=== PATIENT | male | born 1995 | race Caucasian/White ===

== ENCOUNTER → 2016-08-16 | Outpatient (REF) | payer OTHER ==
[2016-08-16 15:00] LABS: % NORMAL FORMS 13 % (>=4); IMMOTILITY 47 %; NON PROGRESSIVE MOTILITY (c) 7 %; PROGRESSIVE MOTILITY (a) 46 % (>=32); SPERM# 147.4 M/Ejac (33-46); TOTAL MOTILITY 53 % (>=40); TOTAL PROGRESSIVE SPERM 67.4 M/Ejac.
== END | disposition home or self-care (01) ==
LOC: M LAB REF 08:57
PROVIDERS: ATTEND Physician Assistant
DX: Z31.41 Encounter for fertility testing (principal)

== ENCOUNTER 2016-08-19 12:24 | Emergency (ER) | payer OTHER ==
[2016-08-19] MEDS ORDERED: DERMABOND TOPICAL SKIN ADHESIVE As Ordered ONE (13:04)
--- NOTE | 2016-08-19 13:24 | EDDOCDS ---
Nurse's Notes [facility] Name: Rafita Perez Age: 21 yrs Sex: Male : 1995 Arrival Date: 08/19/2016 Time: 12:24 Bed TR7 [facility] Diagnosis: Laceration without foreign body of right little finger without damage to nail Presentation: 08/19 12:31 Presenting complaint: Patient states: Laceration to right little finger at 1700 lest mlb1 evening. Adult Sepsis Screening: The patient does not have new or worsening altered mentation. Patient's respiratory rate is less than 22. Systolic blood pressure is greater than 100. Patient has a qSOFA score of 0- Negative Sepsis Screen. Suicide/Homicide risk assessment- the patient denies having any suicidal and/or homicidal ideations and does not present with any other emotional, behavioral or mental health complaints. 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 Transition of care: patient was not received from another setting of care. 12:31 Acuity: NATTY Level 5 mlb1 12:31 Method Of Arrival: Walkin/Carried/Asstd mlb1 Triage Assessment: 12:34 General: Appears in no apparent distress, Behavior is appropriate for age, cooperative. mlb1 Pain: Location: right little finger Pain currently is 4 out of 10 on a pain scale. HIV screening NA for this visit Offered previously. 13:22 Derm: Skin is pink, warm & dry. Injury Description: Laceration sustained to dorsal rs3 aspect of middle phalanx of right little finger is clean. Historical: - Allergies: no known allergies; - Home Meds: 1. tramadol 50 mg Oral tab 1 tab every 6 hours as needed 2. Celebrex 100 mg Oral cap once daily - PMHx: Chronic Back pain; - PSHx: pionidal cyst; - Immunization history:: Last tetanus immunization: up to date. - Family history: Not pertinent. - Social history: Smoking status: Patient states was never smoker of tobacco. No barriers to communication noted, The patient speaks fluent Ivorian, Speaks appropriately for age. - : The pt / caregiver states he / she is not on anticoagulants. Home medication list is obtained from the patient. - Exposure Risk Screening:: None identified. Screenin:21 Screening information is obtained from the patient. Fall risk: No risks identified. rs3 Assistance ADL's: requires no assistance with activities of daily living. Abuse/DV Screen: The patient / caregiver reports he/she is: not in a situation that causes fear, pain or injury. Nutritional screening: No deficits noted. Advance Directives: Currently, there is no health care proxy. There is no active DNR order. home support is adequate. Assessment: 13:21 General: Appears in no apparent distress, Behavior is appropriate for age, cooperative. rs3 Pain: Denies pain. Neurological: Level of Consciousness is awake, alert, Oriented to person, place, time. Cardiovascular: Capillary refill < 3 seconds. Respiratory: Airway is patent Respiratory effort is even, unlabored. Derm: Skin is pink, warm & dry. laceration to R little finger. Vital Signs: 12:26 BP 163 / 90; Pulse 73; Resp 16; Temp 98.1(O); Pulse Ox 100% ; Weight 79.38 kg; Height 5 elp ft. 8 in. (172.72 cm); 12:26 Body Mass Index 26.61 (79.38 kg, 172.72 cm) [facility] Vitals: 12:26 Log In Time: August 19, 2016 at 12:24. elp ED Course: 12:25 Patient visited by Nicole Correia PCA. elp 12:25 Patient moved to Waiting elp 12:26 [facility] is Private Physician. elp 12:27 Patient visited by Nicole Correia PCA. elp 12:27 Patient moved to Pre RCE elp 12:32 Triage Initiated mlb1 12:34 Patient visited by Lino Lagos RN. mlb1 12:41 Patient moved to Triage 1 ck1 12:50 [facility]ul Hamilton [facility] ar2 12:50 Silvana Malone MD is Attending Physician. ar2 12:50 Patient visited by Lul Hamilton PA-C. ar2 13:02 [facility] Payment Agreement was scanned into [employer] and attached to record. gb 13:14 [facility] is Referral Physician. ar2 13:19 Patient moved to TR7 ck1 13:22 The patient / caregiver is instructed regarding the plan of care and ED course. rs3 13:22 No IV's were initiated during this patient's visit. No procedures done that require rs3 assistance. Order Results: There are currently no results for this order. Outcome: 13:15 Discharge ordered by Provider. ar2 13:22 Discharge Assessment: patient administered narcotics - no. The following High Risk rs3 Discharge criteria are identified: None. Discharged to home with family. Condition: stable. Discharge instructions given to patient, Instructed on discharge instructions, follow up and referral plans. medication usage, Demonstrated understanding of instructions, medications, Pt was receptive of discharge instructions/ teaching. Prescriptions given X 1. No special radiology studies were completed. Property :Personal belongings accompany Pt. 13:23 Patient left the ED. rs3 Signatures: Violette Artis, Reg Reg gb Lino Lagos RN RN mlb1 Jael Bowden RN RN ck1 Lul Hamilton, PAEdilberto PAEdilberto ar2 Desiree Hollingsworth RN RN rs3 Nicole Correia, CHAIN OFFBEARER CHAIN OFFBEARER elp MTDD
--- NOTE | 2016-08-19 13:24 | EDDOCDS ---
Physician Documentation [facility] Name: Rafita Perez Age: 21 yrs Sex: Male : 1995 Arrival Date: 08/19/2016 Time: 12:24 Bed TR7 Private MD: [facility] Disposition: 08/19/16 13:15 Discharged to Home/Self Care. Impression: Laceration without foreign body of right little finger without damage to nail. - Condition is Stable. - Discharge Instructions: Tissue Adhesive Wound Care. - Prescriptions for Keflex 500 mg Oral Capsule - take 1 capsule by ORAL route every 8 hours for 7 days; 21 capsule. - Medication Reconciliation, Local Pharmacy Hours form. - Follow up: [facility]; When: 2 - 3 days; Reason: Recheck today's complaints. Follow up: Emergency Department; When: As needed; Reason: signs of infection. - Problem is new. - Symptoms have improved. - Notes: wear splint as needed for wound protection Historical: - Allergies: no known allergies; - Home Meds: 1. tramadol 50 mg Oral tab 1 tab every 6 hours as needed 2. Celebrex 100 mg Oral cap once daily - PMHx: Chronic Back pain; - PSHx: pionidal cyst; - Immunization history:: Last tetanus immunization: up to date. - Family history: Not pertinent. - Social history: Smoking status: Patient states was never smoker of tobacco. No barriers to communication noted, The patient speaks fluent Cook Islander, Speaks appropriately for age. - : The pt / caregiver states he / she is not on anticoagulants. Home medication list is obtained from the patient. - Exposure Risk Screening:: None identified. Vital Signs: 08/19 12:26 BP 163 / 90; Pulse 73; Resp 16; Temp 98.1(O); Pulse Ox 100% ; Weight 79.38 kg / 175 elp lbs; Height 5 ft. 8 in. (172.72 cm); 12:26 Body Mass Index 26.61 (79.38 kg, 172.72 cm) elp MDM: 12:53 Financial registration complete. gb 13:01 Dermabond to bedside ordered. ar2 13:02 [facility] Payment Agreement was scanned into [employer] and attached to record. gb Signatures: Violette Artis, Reg Reg Lino Singletary, RN RN mlb1 Lul Hamilton, PAGenesisC PA-C ar2 Desiree HollingsworthRN RN rs3 The chart was reviewed and I authenticate all verbal orders and agree with the evaluation and treatment provided.Attachments: 13:02 [facility] Payment Agreement gb MTDD
--- NOTE | 2016-08-21 14:24 | EDDOCDS ---
Physician Documentation [facility] Name: Rafita Perez Age: 21 yrs Sex: Male : 1995 Arrival Date: 08/19/2016 Time: 12:24 Bed TR7 Private MD: [facility] [place] Disposition: 08/19/16 13:15 Discharged to Home/Self Care. Impression: Laceration without foreign body of right little finger without damage to nail. - Condition is Stable. - Discharge Instructions: Tissue Adhesive Wound Care. - Prescriptions for Keflex 500 mg Oral Capsule - take 1 capsule by ORAL route every 8 hours for 7 days; 21 capsule. - Medication Reconciliation, Local Pharmacy Hours form. - Follow up: [facility]; When: 2 - 3 days; Reason: Recheck today's complaints. Follow up: Emergency Department; When: As needed; Reason: signs of infection. - Problem is new. - Symptoms have improved. - Notes: wear splint as needed for wound protection Historical: - Allergies: no known allergies; - Home Meds: 1. tramadol 50 mg Oral tab 1 tab every 6 hours as needed 2. Celebrex 100 mg Oral cap once daily - PMHx: Chronic Back pain; - PSHx: pionidal cyst; - Immunization history:: Last tetanus immunization: up to date. - Family history: Not pertinent. - Social history: Smoking status: Patient states was never smoker of tobacco. No barriers to communication noted, The patient speaks fluent Djiboutian, Speaks appropriately for age. - : The pt / caregiver states he / she is not on anticoagulants. Home medication list is obtained from the patient. - Exposure Risk Screening:: None identified. Vital Signs: 08/19 12:26 BP 163 / 90; Pulse 73; Resp 16; Temp 98.1(O); Pulse Ox 100% ; Weight 79.38 kg / 175 elp lbs; Height 5 ft. 8 in. (172.72 cm); 12:26 Body Mass Index 26.61 (79.38 kg, 172.72 cm) elp MDM: 12:53 Financial registration complete. gb 13:01 Dermabond to bedside ordered. ar2 13:02 [facility] Payment Agreement was scanned into [employer] and attached to record. gb 15:45 T-Sheet-- Draft Copy was scanned into [employer] and attached to record. klr Signatures: Violette Artis, Reg Reg gb Lino Lagos RN RN mlb1 Lul Hamilton PA-C PA-C ar2 Desiree HollingsworthRN RN rs3 Abby Densonr The chart was reviewed and I authenticate all verbal orders and agree with the evaluation and treatment provided.Attachments: 13:02 [facility] Payment Agreement gb 15:45 T-Sheet-- Draft Copy klr Chart Complete MTDD
--- NOTE | 2016-08-21 14:24 | EDDOCDS ---
Nurse's Notes [facility] Name: Rafita Perez Age: 21 yrs Sex: Male : 1995 Arrival Date: 08/19/2016 Time: 12:24 Bed TR7 [facility] Diagnosis: Laceration without foreign body of right little finger without damage to nail Presentation: 08/19 12:31 Presenting complaint: Patient states: Laceration to right little finger at 1700 lest mlb1 evening. Adult Sepsis Screening: The patient does not have new or worsening altered mentation. Patient's respiratory rate is less than 22. Systolic blood pressure is greater than 100. Patient has a qSOFA score of 0- Negative Sepsis Screen. Suicide/Homicide risk assessment- the patient denies having any suicidal and/or homicidal ideations and does not present with any other emotional, behavioral or mental health complaints. 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 Transition of care: patient was not received from another setting of care. 12:31 Acuity: NATTY Level 5 mlb1 12:31 Method Of Arrival: Walkin/Carried/Asstd mlb1 Triage Assessment: 12:34 General: Appears in no apparent distress, Behavior is appropriate for age, cooperative. mlb1 Pain: Location: right little finger Pain currently is 4 out of 10 on a pain scale. HIV screening NA for this visit Offered previously. 13:22 Derm: Skin is pink, warm & dry. Injury Description: Laceration sustained to dorsal rs3 aspect of middle phalanx of right little finger is clean. Historical: - Allergies: no known allergies; - Home Meds: 1. tramadol 50 mg Oral tab 1 tab every 6 hours as needed 2. Celebrex 100 mg Oral cap once daily - PMHx: Chronic Back pain; - PSHx: pionidal cyst; - Immunization history:: Last tetanus immunization: up to date. - Family history: Not pertinent. - Social history: Smoking status: Patient states was never smoker of tobacco. No barriers to communication noted, The patient speaks fluent Nauruan, Speaks appropriately for age. - : The pt / caregiver states he / she is not on anticoagulants. Home medication list is obtained from the patient. - Exposure Risk Screening:: None identified. Screenin:21 Screening information is obtained from the patient. Fall risk: No risks identified. rs3 Assistance ADL's: requires no assistance with activities of daily living. Abuse/DV Screen: The patient / caregiver reports he/she is: not in a situation that causes fear, pain or injury. Nutritional screening: No deficits noted. Advance Directives: Currently, there is no health care proxy. There is no active DNR order. home support is adequate. Assessment: 13:21 General: Appears in no apparent distress, Behavior is appropriate for age, cooperative. rs3 Pain: Denies pain. Neurological: Level of Consciousness is awake, alert, Oriented to person, place, time. Cardiovascular: Capillary refill < 3 seconds. Respiratory: Airway is patent Respiratory effort is even, unlabored. Derm: Skin is pink, warm & dry. laceration to R little finger. Vital Signs: 12:26 BP 163 / 90; Pulse 73; Resp 16; Temp 98.1(O); Pulse Ox 100% ; Weight 79.38 kg; Height 5 elp ft. 8 in. (172.72 cm); 12:26 Body Mass Index 26.61 (79.38 kg, 172.72 cm) [facility] Vitals: 12:26 Log In Time: August 19, 2016 at 12:24. elp ED Course: 12:25 Patient visited by Nicole Correia PCA. elp 12:25 Patient moved to Waiting elp 12:26 [facility] is Private Physician. elp 12:27 Patient visited by Nicole Correia PCA. elp 12:27 Patient moved to Pre RCE elp 12:32 Triage Initiated mlb1 12:34 Patient visited by Lino Lagos RN. mlb1 12:41 Patient moved to Triage 1 ck1 12:50 Lul Hamilton [facility]-C [facility]. ar2 12:50 Silvana Malone MD is Attending Physician. ar2 12:50 Patient visited by Lul Hamilton PA-C. ar2 13:02 [facility] Payment Agreement was scanned into [employer] and attached to record. gb 13:14 [facility] is Referral Physician. ar2 13:19 Patient moved to TR7 ck1 13:22 The patient / caregiver is instructed regarding the plan of care and ED course. rs3 13:22 No IV's were initiated during this patient's visit. No procedures done that require rs3 assistance. 15:45 T-Sheet-- Draft Copy was scanned into [employer] and attached to record. klr Order Results: There are currently no results for this order. Outcome: 13:15 Discharge ordered by Provider. ar2 13:22 Discharge Assessment: patient administered narcotics - no. The following High Risk rs3 Discharge criteria are identified: None. Discharged to home with family. Condition: stable. Discharge instructions given to patient, Instructed on discharge instructions, follow up and referral plans. medication usage, Demonstrated understanding of instructions, medications, Pt was receptive of discharge instructions/ teaching. Prescriptions given X 1. No special radiology studies were completed. Property :Personal belongings accompany Pt. 13:23 Patient left the ED. rs3 Signatures: Violette Artis, Jarred Reg Lino Singletary, RN RN mlb1 Jael BowdenRN RN ck1 Lul Hamilton, PAGenesisC PA-Isaias ar2 Desiree HollingsworthRN RN rs3 Nicole Correia PCA PCA elp Redder, Kathie klr Chart Complete APARNA
--- NOTE | 2016-08-21 14:24 | EDDOCDS ---
Physician Documentation [facility] Name: Rafita Perez Age: 21 yrs Sex: Male : 1995 Arrival Date: 08/19/2016 Time: 12:24 Bed TR7 Private MD: [facility] Disposition: 08/19/16 13:15 Discharged to Home/Self Care. Impression: Laceration without foreign body of right little finger without damage to nail. - Condition is Stable. - Discharge Instructions: Tissue Adhesive Wound Care. - Prescriptions for Keflex 500 mg Oral Capsule - take 1 capsule by ORAL route every 8 hours for 7 days; 21 capsule. - Medication Reconciliation, Local Pharmacy Hours form. - Follow up: [facility]; When: 2 - 3 days; Reason: Recheck today's complaints. Follow up: Emergency Department; When: As needed; Reason: signs of infection. - Problem is new. - Symptoms have improved. - Notes: wear splint as needed for wound protection Historical: - Allergies: no known allergies; - Home Meds: 1. tramadol 50 mg Oral tab 1 tab every 6 hours as needed 2. Celebrex 100 mg Oral cap once daily - PMHx: Chronic Back pain; - PSHx: pionidal cyst; - Immunization history:: Last tetanus immunization: up to date. - Family history: Not pertinent. - Social history: Smoking status: Patient states was never smoker of tobacco. No barriers to communication noted, The patient speaks fluent Armenian, Speaks appropriately for age. - : The pt / caregiver states he / she is not on anticoagulants. Home medication list is obtained from the patient. - Exposure Risk Screening:: None identified. Vital Signs: 08/19 12:26 BP 163 / 90; Pulse 73; Resp 16; Temp 98.1(O); Pulse Ox 100% ; Weight 79.38 kg / 175 elp lbs; Height 5 ft. 8 in. (172.72 cm); 12:26 Body Mass Index 26.61 (79.38 kg, 172.72 cm) elp MDM: 12:53 Financial registration complete. gb 13:01 Dermabond to bedside ordered. ar2 13:02 [facility] Payment Agreement was scanned into [employer] and attached to record. gb 15:45 T-Sheet-- Draft Copy was scanned into [employer] and attached to record. klr Signatures: Violette Artis, Reg Reg gb Lino Lagos RN RN mlb1 Lul Hamilton PA-C PA-C ar2 Desiree HollingsworthRN RN rs3 Abby Densonr The chart was reviewed and I authenticate all verbal orders and agree with the evaluation and treatment provided.Attachments: 13:02 [facility] Payment Agreement gb 15:45 T-Sheet-- Draft Copy klr Chart Complete MTDD
== END 2016-08-19 13:23 | disposition home or self-care (01) ==
LOC: M ED 12:24
DX: S61.216A Laceration without foreign body of right little finger without damage to nail, initial encounter (principal); W25.XXXA Contact with sharp glass, initial encounter; Y92.89 Other specified places as the place of occurrence of the external cause; Y93.89 Activity, other specified; Y99.8 Other external cause status; M54.9 Dorsalgia, unspecified; Z79.899 Other long term (current) drug therapy